=== PATIENT | female | born 1975 | race Caucasian/White ===

== ENCOUNTER 2017-06-23 16:57 | Emergency (ER) | payer MEDICAID ==
[~2017-06-23] VITALS: Ht 167.6 cm; Wt 131.7 kg
[~2017-06-23 16:57] MED LIST: BACT800T5 PO
[2017-06-23 17:22] VITALS: BP 196/98; PULSE 85; TEMP 98.4; O2SAT 97
--- NOTE | 2017-06-23 18:28 | PD ---
HPI Chief Complaint: Cold / Flu Symptoms Time Seen by Provider: 18:26 Travel History International Travel<30 days: No Contact w/Intl Traveler<30days: No Traveled to known affect area: No History of Present Illness HPI This is a 42-year-old female who presents to the emergency department with 2 weeks of chest discomfort feeling like she can't take a deep breath and she has fluid in her lungs. The symptoms are constant, moderate severity and associated with some wheezing. She denies any productive cough, fevers or chills. Her doctor treated her for presumed bronchitis. She completed a course of, antibiotics, prednisone and bronchodilators. She finished her medications 3 days ago. Her symptoms have not improved so she came to the emergency department. [facility] Past Medical History Arthritis: Yes ("IN MY HIPS") Heart Rhythm Problems: No Cancer: No Cardiac Catheterization: No Cardiovascular Problems: No High Cholesterol: No Congestive Heart Failure: No Diabetes: No Diminished Hearing: No Endocrine: No Gastrointestinal Disorders: No Genitourinary: No Headaches: Yes Herniated Disk: Yes (L4-L5) Hypertension: No Immune Disorder: No Implanted Vascular Access Dvce: No Musculoskeletal: Yes (HERNIATED DISCS L4-L5) Neurologic: No Psychiatric: No Reproductive: No Respiratory: Yes ("BRONCHITIS EVERY YEAR") Immunizations Current: No Thyroid Disease: No Tetanus Vaccination: > 5 Years Influenza Vaccination: No PNEUMOCCOCAL Vaccine (Year): 1 ?: Not LMP: 06/19/17 : 3 Para: 3 Past Surgical History Coronary Artery Bypass Graft: No Oral Surgery: Yes (WISDOM TEETH EXTRACTED) Other Surgery: No Family History Family Myocardial Infarction: Yes (FATHER ) Social History Alcohol Use: Yes ("RARELY") Tobacco Use: No Substance Use: No Allergies-Medications (Allergen,Severity, Reaction): Coded Allergies: No Known Allergies (Verified , 06/23/17) Reported Meds & Prescriptions Reported Meds & Active Scripts Active No Active Prescriptions or Reported Medications Review of Systems Except as stated in HPI: all other systems reviewed are Neg Physical Exam Narrative GENERAL:Well appearing, no acute distress SKIN: Focused skin assessment warm and dry. HEAD: Atraumatic. Normocephalic. EYES: Pupils equal and round. No injection or drainage. ENT: Moist mucous membranes NECK: Trachea midline. CARDIOVASCULAR: Regular rate and rhythm. No murmur appreciated. RESPIRATORY: Diffuse expiratory wheezing, no tachypnea GASTROINTESTINAL: Abdomen soft, non-tender, nondistended. MUSCULOSKELETAL: No obvious deformities. NEUROLOGICAL: Awake and alert. No obvious cranial nerve deficits. Moving all extremities. PSYCHIATRIC: Appropriate mood and affect; insight and judgment normal. Data Data Last Documented VS Vital Signs Date Time Temp Pulse Resp B/P (MAP) Pulse Ox O2 Delivery O2 Flow Rate FiO2 06/23/17 18:14 Room Air 06/23/17 17:22 98.4 85 196/98 (130) 97 Orders Orders Complete Blood Count With Diff (06/23/17:) Comprehensive Metabolic Panel (06/23/17) B-Type Natriuretic Peptide (06/23/17) D-Dimer (06/23/17) Act Partial Throm Time (Ptt) (06/23/17) Prothrombin Time / Inr (Pt) (06/23/17) Troponin I (06/23/17:) Iv Access Insert/Monitor (06/23/17) Electrocardiogram (06/23/17) Ecg Monitoring (06/23/17:) Oximetry (06/23/17:) Oxygen Administration (06/23/17:) Chest, Single Ap (06/23/17:) Sodium Chloride 0.9% Flush (Ns Flush) (06/23/17 18:30) Methylprednisolone So Succ Inj (Solumedr (06/23/17 18:30) Albuterol-Ipratropium Neb (Duoneb Neb) (06/23/17 18:30) MDM Medical Decision Making Medical Screen Exam Complete: Yes Emergency Medical Condition: Yes Interpretation(s) Afebrile, no tachycardia, hypertension Differential Diagnosis Bronchitis, pneumonia, acute coronary syndrome, pulmonary embolism, congestive heart failure Narrative Course This is a 42-year-old female who presents to the emergency department with shortness of breath and chest discomfort that's been going on for 2 weeks. She feels a little bit lightheaded. She thought she had bronchitis but she completed a course of steroids and antibiotics and she doesn't feel any better. She doesn't really have a cough or fever. She has some expiratory wheezing on exam. And concern there may be an alternate etiology of her symptoms aside from bronchitis. Plan for labs and a chest x-ray. I do think a d-dimer is warranted as she could've a pulmonary embolism. She was also given steroids and bronchodilator treatments. Case will be followed up by oncoming provider. Scripts No Active Prescriptions or Reported Meds Pamela Morillo MD Jun 23, 2017 18:28
[2017-06-23] MEDS ORDERED: methylPREDNISolone SOD SUCC 125 MG/2 ML VIAL IV PUSH ONE (18:30)
[2017-06-23] MEDS ORDERED: SODIUM CHLORIDE 0.9% FLUSH 10 ML FLUSH IVF PRN (18:30)
[2017-06-23] MEDS: RESP: ALBUTEROL 2.5 MG/IPRATROPIUM 0.5 MG NEB (SCH) INH (18:35)
[2017-06-23 18:55] LABS: AUTOMATED NEUTROPHIL # 5.9 TH/MM3 (1.8-7.7); BASOPHIL # 0.1 TH/MM3 (0-0.2); BASOPHIL % 0.7 % (0.0-2.0); EOSINOPHIL # 0.3 TH/MM3 (0-0.4); EOSINOPHIL % 2.6 % (0.0-4.0); HEMATOCRIT 37.1 % (35.0-46.0); LYMPH % 29.9 % (9.0-44.0); LYMPHOCYTE # 2.9 TH/MM3 (1.0-4.8); MEAN CELL VOLUME 73.1 FL (80.0-100.0); MEAN CORPUSCULAR HEMOGLOBIN 23.2 PG (27.0-34.0); MEAN CORPUSCULAR HGB CONC 31.8 % (32.0-36.0); MONO % 6.3 % (0.0-8.0); NEUT % 60.5 % (16.0-70.0); PLATELET COUNT 440 TH/MM3 (150-450); RED BLOOD COUNT 5.07 MIL/MM3 (4.00-5.30); RED CELL DISTRIBUTION WIDTH 15.4 % (11.6-17.2); WHITE BLOOD COUNT 9.8 TH/MM3 (4.0-11.0)
[2017-06-23 19:03] LABS: CHLORIDE 104 MEQ/L (98-107); POTASSIUM 3.5 MEQ/L (3.5-5.1); SODIUM (NA) 139 MEQ/L (136-145)
[2017-06-23 19:07] LABS: ANION GAP 8 MEQ/L (5-15); BICARBONATE 27.2 MEQ/L (21.0-32.0); BLOOD UREA NITROGEN 9 MG/DL (7-18)
[2017-06-23 19:08] LABS: HEMO FLAGS AUTO DIFF
[2017-06-23 19:10] LABS: ALT (GPT) 40 U/L (10-53); AST (GOT) 19 U/L (15-37); GLOMERULAR FILTRATION RATE 75 ML/MIN (>89)
[2017-06-23 19:12] LABS: TOTAL BILIRUBIN ADULT 0.3 MG/DL (0.2-1.0)
[2017-06-23 19:13] LABS: ALKALINE PHOSPHATASE 77 U/L (45-117)
[2017-06-23 19:19] LABS: APTT (PATIENT) 24.7 SEC (24.3-30.1); INTERNATIONAL NORMALIZED RATIO 0.9 RATIO; PROTHROMBIN TIME - PATIENT 9.7 SEC (9.8-11.6)
[2017-06-23 19:22] LABS: PLATELET ESTIMATE SMEAR NORMAL (NORMAL); PLATELET MORPHOLOGY NORMAL (NORMAL); SCAN/DIFF AUTO DIFF CONFIRMED
--- NOTE | 2017-06-23 19:36 | RADRPT ---
EXAM DATE/TIME: 06/23/2017 19:19 [facility] COMPARISON: No previous studies available for comparison. INDICATIONS : Cough and congestion. MEDICAL HISTORY : Bronchitis SURGICAL HISTORY : None. ENCOUNTER: Initial ACUITY: 2 weeks PAIN SCORE: 2/10 LOCATION: Bilateral chest FINDINGS: A single view of the chest demonstrates the lungs to be symmetrically aerated without evidence of mas s, infiltrate or effusion. The cardiomediastinal contours are unremarkable. Osseous structures are intact. CONCLUSION: No acute disease. Kvng Hwang MD on June 23, 2017 at 19:35 Board Certified Radiologist. This report was verified electronically.
[2017-06-23 20:18] VITALS: BP 188/82; PULSE 83; RESP 18; O2SAT 100
[2017-06-23] MEDS ORDERED: PRED50 PO (20:40)
--- NOTE | 2017-06-23 20:40 | PD ---
Physical Exam Time Seen by Provider: 20:[address] Morillo left this patient with me to check the results of the laboratory and make a disposition. Data Data Last Documented VS Vital Signs Date Time Temp Pulse Resp B/P (MAP) Pulse Ox O2 Delivery O2 Flow Rate FiO2 06/23/17 20:18 83 18 188/82 (117) 100 Room Air 06/23/17 17:22 98.4 Orders Orders Complete Blood Count With Diff (06/23/17 18:) Comprehensive Metabolic Panel (06/23/17) B-Type Natriuretic Peptide (06/23/17) D-Dimer (06/23/17) Act Partial Throm Time (Ptt) (06/23/17) Prothrombin Time / Inr (Pt) (06/23/17) Troponin I (06/23/17) Iv Access Insert/Monitor (06/23/17) Electrocardiogram (06/23/17) Ecg Monitoring (06/23/17) Oximetry (06/23/17) Oxygen Administration (06/23/17) Chest, Single Ap (06/23/17:) Sodium Chloride 0.9% Flush (Ns Flush) (06/23/17 18:30) Methylprednisolone So Succ Inj (Solumedr (06/23/17 18:30) Albuterol-Ipratropium Neb (Duoneb Neb) (06/23/17 18:30) Labs Laboratory Tests Test 06/23/17 18:45 White Blood Count 9.8 TH/MM3 Red Blood Count 5.07 MIL/MM3 Hemoglobin 11.8 GM/DL Hematocrit 37.1 % Mean Corpuscular Volume 73.1 FL Mean Corpuscular Hemoglobin 23.2 PG Mean Corpuscular Hemoglobin Concent 31.8 % Red Cell Distribution Width 15.4 % Platelet Count 440 TH/MM3 Mean Platelet Volume 8.4 FL Neutrophils (%) (Auto) 60.5 % Lymphocytes (%) (Auto) 29.9 % Monocytes (%) (Auto) 6.3 % Eosinophils (%) (Auto) 2.6 % Basophils (%) (Auto) 0.7 % Neutrophils # (Auto) 5.9 TH/MM3 Lymphocytes # (Auto) 2.9 TH/MM3 Monocytes # (Auto) 0.6 TH/MM3 Eosinophils # (Auto) 0.3 TH/MM3 Basophils # (Auto) 0.1 TH/MM3 CBC Comment AUTO DIFF Differential Comment AUTO DIFF CONFIRMED Platelet Estimate NORMAL Platelet Morphology Comment NORMAL Prothrombin Time 9.7 SEC Prothromb Time International Ratio 0.9 RATIO Activated Partial Thromboplast Time 24.7 SEC D-Dimer Quantitative (PE/DVT) 0.29 MG/L FEU Blood Urea Nitrogen 9 MG/DL Creatinine 0.83 MG/DL Random Glucose 90 MG/DL Total Protein 7.6 GM/DL Albumin 3.5 GM/DL Calcium Level 8.3 MG/DL Alkaline Phosphatase 77 U/L Aspartate Amino Transf (AST/SGOT) 19 U/L Alanine Aminotransferase (ALT/SGPT) 40 U/L Total Bilirubin 0.3 MG/DL Sodium Level 139 MEQ/L Potassium Level 3.5 MEQ/L Chloride Level 104 MEQ/L Carbon Dioxide Level 27.2 MEQ/L Anion Gap 8 MEQ/L Estimat Glomerular Filtration Rate 75 ML/MIN Troponin I LESS THAN 0.02 NG/ML B-Type Natriuretic Peptide 32 PG/ML [facility] Medical Record Reviewed: Yes Supervised Visit with CHERI: No Interpretation(s) The complete metabolic profile is normal except for a GFR of 75 and the BNP is normal. The CBC is normal. Except for a ProTime of 9.7 the coagulation profile is normal. The d-dimer is normal. The chest x-ray is normal. Differential Diagnosis Pneumonia, bronchitis, pulmonary embolus, viral upper respiratory infection Narrative Course The patient has a viral bronchitis. There are only a very few wheezes on auscultation. She got no relief with the DuoNeb treatments and did not get any relief with the antibiotic given to her by her primary care physician. Plan: The patient will be put on a tapered course of prednisone and follow-up with her primary care physician. Diagnosis Primary Impression: Acute viral bronchitis Additional Instruction: Follow-up Sunday with her primary care physician. The prednisone is one tablet twice daily for 4 days followed by one tablet once daily for 4 days. Med/Other Pt SpecificInfo: Prescription(s) given Scripts Prednisone (Prednisone) 50 Mg Tab 50 MG PO BID for X 4 days than daily X 4 days, #12 TAB 0 Refills Prov: Som Ernst MD 06/23/17 Disposition: 01 DISCHARGE HOME Condition: Stable Som Ernst MD Jun 23, 2017 20:40
[2017-06-23] MEDS ORDERED: predniSONE 20 MG TAB PO ONE (20:45)
[2017-06-23 20:58] VITALS: BP 185/90
--- NOTE | 2017-06-24 07:50 | EKG ---
Date Performed: 06/23/2017 Time Performed: 18:33:15 PTAGE: 42 years EKG: Sinus rhythm INCOMPLETE RIGHT BUNDLE BRANCH BLOCK NONSPECIFIC T-WAVE ABNORMALITY BORDERLINE ECG No significant ch flo from prior electrocardiogram. PREVIOUS TRACING : 02/02/2015 16.12 DOCTOR: Gagan Monreal Interpretating Date/Time 06/24/2017 07:49:12
== END 2017-06-23 21:01 | disposition home or self-care (01) ==
LOC: PHED 16:57
DX: J20.8 Acute bronchitis due to other specified organisms (principal); R94.31 Abnormal electrocardiogram [ECG] [EKG]
CPT/HCPCS: 71010; 80053; 83880; 84484; 85025; 85379; 85610; 85730; 93005; 94640; 94664; 96374; 99285; J2930

== ENCOUNTER → 2017-08-13 | Outpatient (CLI) | payer MEDICAID ==
[~2017-08-13] MED LIST changes: -BACT800T5 PO; +PRED50 PO
[2017-08-13 08:14] LABS: BLOOD GAS BASE EXCESS 0.2 mmol/L (-2-2); BLOOD GAS CARBOXYHEMOGLOBIN 1.4 % (0-4); BLOOD GAS HCO3 24 mmol/L (22-26); BLOOD GAS METHEMOGLOBIN 0.8 % (0-2); BLOOD GAS O2 HGB SATURATION 94 % (90-100); BLOOD GAS OXYGEN CONTENT 15.8 Vol % (12.0-20.0); BLOOD GAS PCO2 37 mmHG (38-42); BLOOD GAS PO2 80 mmHG (61-120); BLOOD GAS TOTAL HGB 11.9 G/DL (12.0-16.0); CRITICAL VALUE NO; DRAW SITE RT BRACHIAL; FIO2 21 %; NUMBER OF ARTERIAL PUNCTURES 2; OXYGEN DEVICE ROOM AIR; STAT NO; TEMP CORR TO 98.6; ULNAR PULSE Y
--- NOTE | 2017-08-16 09:03 | RSPPFT ---
DATE OF PROCEDURE: 08/13/17 COMMENTS: Spirometry with normal flow rates and ratios. Slow vital capacity is 95% of predicted. TLC is 93%. Diffusion capacity is normal. A non-significant response to acutely inhaled bronchodilator noted. Room air arterial blood gases show pH of 7.43, PCO2 of 37, PO2 of 80. IMPRESSION: 1. Normal pulmonary function. 2. No suggestion of airways obstruction or restriction.
== END ==
LOC: PHRSP 07:32
PROVIDERS: ATTEND Internal Medicine Sleep Medicine
DX: R06.89 Other abnormalities of breathing (principal)
CPT/HCPCS: 36600; 82805; 94060; 94726; 94729

== ENCOUNTER 2017-11-08 17:34 | Emergency (ER) | payer MEDICAID ==
[~2017-11-08] VITALS: Ht 167.6 cm; Wt 132.9 kg
[2017-11-08 17:44] VITALS: BP 138/87; PULSE 88; RESP 16; TEMP 98; O2SAT 97
--- NOTE | 2017-11-08 18:23 | PD ---
HPI Chief Complaint: Fall Time Seen by Provider: 18:00 Travel History International Travel<30 days: No Contact w/Intl Traveler<30days: No Traveled to known affect area: No History of Present Illness HPI 42-year-old female here for evaluation of left lower extremity pain after she had a trip and fall today. She reports pain in her left knee and hu. Denies head injury or loss of consciousness. Patient is not anticoagulated. He denies headache, neck pain, chest pain, shortness of breath, abdominal pain, paresthesia or weakness of the extremities. Symptom severity is moderate. Worse with weightbearing and slightly relieved with rest. PFSH Past Medical History Arthritis: Yes ("IN MY HIPS") Heart Rhythm Problems: No Cancer: No Cardiac Catheterization: No Cardiovascular Problems: No High Cholesterol: No Congestive Heart Failure: No Diabetes: No Diminished Hearing: No Endocrine: No Gastrointestinal Disorders: No Genitourinary: No Headaches: Yes Herniated Disk: Yes (L4-L5) Hypertension: No Immune Disorder: No Implanted Vascular Access Dvce: No Musculoskeletal: Yes (HERNIATED DISCS L4-L5) Neurologic: No Psychiatric: No Reproductive: No Respiratory: Yes ("BRONCHITIS EVERY YEAR") Immunizations Current: No Thyroid Disease: No Tetanus Vaccination: > 5 Years Influenza Vaccination: No PNEUMOCCOCAL Vaccine (Year): 1 ?: Not LMP: 11/07/17 : 3 Para: 3 Past Surgical History Coronary Artery Bypass Graft: No Oral Surgery: Yes (WISDOM TEETH EXTRACTED) Other Surgery: No Family History Family Myocardial Infarction: Yes (FATHER ) Social History Alcohol Use: Yes ("RARELY") Tobacco Use: No Substance Use: No Allergies-Medications (Allergen,Severity, Reaction): Coded Allergies: No Known Allergies (Verified Adverse Reaction, Unknown, 11/08/17) Reported Meds & Prescriptions Reported Meds & Active Scripts Active Review of Systems Except as stated in HPI: all other systems reviewed are Neg Eyes: No: Visual changes HENT: No: Headaches Cardiovascular: No: Chest Pain or Discomfort Respiratory: No: Shortness of Breath Gastrointestinal: No: Abdominal Pain Genitourinary: No: Dysuria Physical Exam Narrative GENERAL: Alert and well-appearing 42-year-old female. SKIN: Warm and dry. Ecchymosis noted to the lower extremity anterior/lateral aspect of the hu. HEAD: Normocephalic. Atraumatic EYES: No injection or drainage. NECK: Supple. No midline Spine tenderness CARDIOVASCULAR: Regular rate and rhythm without murmurs, gallops, or rubs. No chest wall tenderness RESPIRATORY: Breath sounds equal bilaterally. No accessory muscle use. GASTROINTESTINAL: Abdomen soft, non-tender, nondistended. MUSCULOSKELETAL: No cyanosis. Left lower extremity: Notable tenderness over the anterior aspect of the tibia. Ecchymosis to the anterior/lateral aspect the calf. No deformity. Normal sensation. 2+ distal pulses. Brisk cap refill. BACK: Nontender without obvious deformity. No CVA tenderness. Data Data Last Documented VS Vital Signs Date Time Temp Pulse Resp B/P (MAP) Pulse Ox O2 Delivery O2 Flow Rate FiO2 11/08/17 17:44 98.0 88 16 138/87 (104) 97 Orders Orders Knee, Complete (4vws) (11/08/17 ) Tibia/Fibula (Ap/Lat) (11/08/17 ) Ketorolac Inj (Toradol Inj) (11/08/17 19:15) Shantanu Bandage (11/08/17 19:08) MDM Medical Decision Making Medical Screen Exam Complete: Yes Emergency Medical Condition: Yes Differential Diagnosis Tib-fib fracture, knee fracture, contusion, sprain Narrative Course This is a 42-year-old female here with left lower extremities pain after a mechanical fall today. The extremity is neurovascularly intact. X-ray tib-fib: Negative fracture X-ray knee: Negative for fracture. CONCLUSION: No acute fracture, dislocation or knee joint effusion. Possible posttraumatic changes or exostosis arising from the left distal femoral medial epicondyle. Shantanu wrap applied to the knee. Patient is given a shot of Toradol. She reports symptom improvement. She was instructed follow-up with her PCP regarding her x- ray findings. I do not suspect this is from the injury she is nontender at that site. Diagnosis Primary Impression: Left knee injury Qualified Codes: S89.92XA - Unspecified injury of left lower leg, initial encounter Additional Impression: Contusion Qualified Codes: S80.12XA - Contusion of left lower leg, initial encounter Referrals: Primary Care Physician Additional Instructions: Ice and elevate the extremity. [id number] ibuprofen 800 mg every 6 hours as needed for pain. As needed for severe pain. Follow-up the primary doctor Scripts Acetaminophen-Codeine (Tylenol-Codeine #3) 300-30 mg Tab 1 TAB PO Q6H Y for PAIN, #12 TAB 0 Refills Prov: Franci Reyes 11/08/17 Disposition: 01 DISCHARGE HOME Condition: Stable Franci Reyes Nov 08, 2017 18:23
--- NOTE | 2017-11-08 18:44 | RADRPT ---
EXAM DATE/TIME: 11/08/2017 18:14 [facility] COMPARISON: No previous studies available for comparison. INDICATIONS : Left knee pain on anterior aspect of knee after fall. MEDICAL HISTORY : None. SURGICAL HISTORY : None. ENCOUNTER: Initial ACUITY: 1 day PAIN SCORE: 6/10 LOCATION: Left knee FINDINGS: There is no acute fracture or dislocation left knee. There is possible posttraumatic changes or exost osis arising from the left distal femoral medial epicondyle. No knee joint effusion is noted CONCLUSION: No acute fracture, dislocation or knee joint effusion. Possible posttraumatic changes or exostosis arising from the left distal femoral medial epicondyle. Ezio Garza MD on November 08, 2017 at 18:40 Board Certified Radiologist. This report was verified electronically.
--- NOTE | 2017-11-08 18:45 | RADRPT ---
EXAM DATE/TIME: 11/08/2017 18:14 [facility] COMPARISON: No previous studies available for comparison. INDICATIONS : Left anterior tibia/fibula pain after fall. MEDICAL HISTORY : None. SURGICAL HISTORY : None. ENCOUNTER: Initial ACUITY: 1 day PAIN SCORE: 8/10 LOCATION: Left tibia/fibula FINDINGS: Two view examination of the left tibia demonstrates no evidence of fracture or dislocation. Bony min eralization is normal. The soft tissue structures are intact. CONCLUSION: No acute disease. Ezio Garza MD on November 08, 2017 at 18:44 Board Certified Radiologist. This report was verified electronically.
[2017-11-08] MEDS ORDERED: TYLETAB34 PO (19:14)
[2017-11-08] MEDS ORDERED: KETOROLAC TROMETHAMINE 60 MG/2 ML (IM) VIAL IM ONE (19:15)
== END 2017-11-08 19:28 | disposition home or self-care (01) ==
LOC: PHEFT 17:34
DX: S89.92XA Unspecified injury of left lower leg, initial encounter (principal); S80.12XA Contusion of left lower leg, initial encounter; M16.10 Unilateral primary osteoarthritis, unspecified hip; W01.0XXA Fall on same level from slipping, tripping and stumbling without subsequent striking against object, initial encounter
CPT/HCPCS: 73564; 73590; 96372; 99283; J1885

== ENCOUNTER 2018-01-08 19:38 | Emergency (ER) | payer MEDICAID ==
[~2018-01-08] VITALS: Ht 165.1 cm; Wt 126.7 kg
[~2018-01-08 19:38] MED LIST changes: -PRED50 PO; +TYLETAB34 PO
[2018-01-08 20:24] VITALS: BP 164/92; PULSE 97; RESP 20; TEMP 98.5; O2SAT 98
--- NOTE | 2018-01-08 21:00 | PD ---
HPI Chief Complaint: Skin Problem Time Seen by Provider: 20:31 Travel History International Travel<30 days: No Contact w/Intl Traveler<30days: No Traveled to known affect area: No History of Present Illness HPI 42-year-old female with no significant past medical history presents to the emergency room with a 4 week history of left labia majora cyst. Patient denies localized pain, discharge, fever, chills, abdominal pain, abnormal vaginal bleeding or or recurrent cysts of the same nature in the past. PFSH Past Medical History Arthritis: Yes ("IN MY HIPS") Heart Rhythm Problems: No Cancer: No Cardiac Catheterization: No Cardiovascular Problems: No High Cholesterol: No Congestive Heart Failure: No Diabetes: No Diminished Hearing: No Endocrine: No Gastrointestinal Disorders: No Genitourinary: No Headaches: Yes Herniated Disk: Yes (L4-L5) Hypertension: No Immune Disorder: No Implanted Vascular Access Dvce: No Musculoskeletal: Yes (HERNIATED DISCS L4-L5, left leg bone growth) Neurologic: No Psychiatric: No Reproductive: No Respiratory: Yes ("BRONCHITIS EVERY YEAR") Immunizations Current: No Thyroid Disease: No Influenza Vaccination: No PNEUMOCCOCAL Vaccine (Year): 1 ?: Unknown LMP: 12/28/17 : 3 Para: 3 Past Surgical History Abdominal Surgery: Yes (colonoscopy) Coronary Artery Bypass Graft: No Oral Surgery: Yes (WISDOM TEETH EXTRACTED) Other Surgery: No Family History Family Myocardial Infarction: Yes (FATHER ) Social History Alcohol Use: Yes ("RARELY") Tobacco Use: No Substance Use: No Allergies-Medications (Allergen,Severity, Reaction): Coded Allergies: No Known Allergies (Verified Adverse Reaction, Unknown, 11/08/17) Reported Meds & Prescriptions Reported Meds & Active Scripts Active No Active Prescriptions or Reported Medications Review of Systems Except as stated in HPI: all other systems reviewed are Neg General / Constitutional: No: Fever, Chills Eyes: No: Blurred Vision, Redness, Pain HENT: No: Rhinorrhea, Congestion, Neck Stiffness, Neck Pain, Earache Cardiovascular: No: Chest Pain or Discomfort, Palpitations, Dyspnea on exertion Respiratory: No: Cough, Shortness of Breath, Wheezing Gastrointestinal: No: Nausea, Vomiting, Diarrhea, Abdominal Pain, Hematochezia , Constipation Genitourinary: No: Dysuria Musculoskeletal: No: Myalgias Skin: No Rash, No Hives Neurologic: No: Weakness, Dizziness, Syncope, Headache, Slurred Speech, Seizures Psychiatric: No: Suicidal Ideations Physical Exam Narrative Vital Signs Date Time Temp Pulse Resp B/P (MAP) Pulse Ox O2 Delivery O2 Flow Rate FiO2 01/08/18 20:24 98.5 97 20 164/92 (116) 98 GENERAL: Patient is alert and oriented -3 SKIN: Focused skin assessment warm/dry. CARDIOVASCULAR: Regular rate and rhythm. No murmur appreciated. RESPIRATORY: No accessory muscle use. Clear to auscultation. Breath sounds equal bilaterally. GASTROINTESTINAL: Abdomen soft, non-tender, nondistended. Hepatic and splenic margins not palpable. MUSCULOSKELETAL: No obvious deformities. No clubbing. No cyanosis. No edema. NEUROLOGICAL: Awake and alert. No obvious cranial nerve deficits. Motor grossly within normal limits. Normal speech. PSYCHIATRIC: Appropriate mood and affect; insight and judgment normal. GENITOURINARY: Left labia majora shows a small less than 1 cm cyst, nontender, nonerythematous, without localized discharge, freely mobile. Vaginal vault without blood or drainage. Cervical os was without drainage. No cervical motion tenderness. Uterus nontender and nonenlarged. Bilateral adnexa nontender without masses. Data Data Last Documented VS Vital Signs Date Time Temp Pulse Resp B/P (MAP) Pulse Ox O2 Delivery O2 Flow Rate FiO2 01/08/18 20:24 98.5 97 20 164/92 (116) 98 [facility] Medical Decision Making Medical Screen Exam Complete: Yes Emergency Medical Condition: Yes Medical Record Reviewed: Yes Differential Diagnosis Genital herpes, genital warts, vaginal cancer, abscess, sebaceous cyst, ingrowing hair folliculitis, Bartholin's gland cyst Narrative Course After examination patient was made aware of the diagnosis and the possible options of either conservative management or follow-up with [facility] to have the cyst removed surgically. Patient was also made aware off complications of localized infection at which time it needs to be surgically drained. Diagnosis Primary Impression: Bartholin cyst Referrals: Kanika May MD 3 days Patient Instructions: Bartholin Cyst (GEN), General Instructions Scripts No Active Prescriptions or Reported Meds Disposition: DISCHARGE HOME Condition: Stable Sanchez Marquez MD January 08, 2018 21:00
== END 2018-01-08 21:25 | disposition home or self-care (01) ==
LOC: PHED 19:38
DX: N75.0 Cyst of Bartholin's gland (principal); M19.90 Unspecified osteoarthritis, unspecified site
CPT/HCPCS: 99284